=== PATIENT | male | born 1990 | race Caucasian/White ===

== ENCOUNTER → 2016-10-04 | Outpatient (CLI) | payer OTHER ==
--- NOTE | 2016-10-04 15:16 | US ---
EXAMINATION TYPE: US thyroid st tissue head/neck DATE OF EXAM: 10/04/2016 2:56 PM COMPARISON: NONE CLINICAL HISTORY: F45.8 Globus sensation. feels pressure left neck especially with swallowing GLAND SIZE: Right Lobe: 5.5 x 2.0 x 1.6 cm Overall Parenchyma: homogenous Left Lobe: 5.4 x 2.0 x 1.3 cm Overall Parenchyma: homogeneous Isthmus Thickness: 0.2 cm NODULES RIGHT: # of nodules measured on right: 1 1. 0.2 x 0.2 x 0.2 cm hypoechoic cystic nodule at the lower pole with well-defined margins. This nod ule is as tall as is wide and shows no intranodular vascularity. LEFT: # of nodules measured on left: 0 ISTHMUS: # of nodules measured in the isthmus: 0 TECHNOLOGIST IMPRESSION: Bilateral neck scanned, no abnormal lymphadenopathy noted, but upper neck n ode is noted bilaterally. Thyroid gland is prominent/upper limits of normal in size and fairly homogeneous in echotexture. No s uspicious nodules are identified. Technologist identified benign appearing subcentimeter lymph nodes with normal fatty hilum in the bilateral neck. IMPRESSION: Thyroid gland is prominent without worrisome greater than 1 cm solid or cystic nodule identified bila terally.
== END | disposition home or self-care (01) ==
LOC: RADUSWWP 14:00
PROVIDERS: ATTEND Family Medicine
DX: E04.1 Nontoxic single thyroid nodule (principal); F45.8 Other somatoform disorders
CPT/HCPCS: 76536

== ENCOUNTER 2016-12-27 07:48 | Day surgery (SDC) | payer OTHER ==
[2016-12-25 10:49] VITALS: BMI 37.3
[~2016-12-27 07:48] MED LIST: LACTATED RINGERS 1,000 ML IV SCH
[2016-12-27 08:26] VITALS: RESP 16; TEMP 97.6
[2016-12-27] MEDS ORDERED: PROPOFOL 10 MG/ML 20 ML VIAL IV ONE (08:55)
--- NOTE | 2016-12-27 09:03 | P.PCN ---
Date of Procedure: 12/27/16 Procedure(s) Performed: BRIEF HISTORY: Patient is a 26-year-old, pleasant, white male, scheduled for an upper endoscopy as a part of evaluation of globus sensation in his throat and throat irritation the last 3 months duration. He had seen Dr. Gan and had a endoscopy done which was normal. Trial of Prilosec 20 mg daily for 3 months and did not help. PROCEDURE PERFORMED: Esophagogastroduodenoscopy with biopsy. PREOPERATIVE DIAGNOSIS: Intermittent dysphagia, globus sensation and throat irritation. IV sedation per anesthesia. PROCEDURE: After informed consent was obtained, the patient was brought into the endoscopy unit. IV sedation was administered by Anesthesia under continuous monitoring. Initially the Olympus GIF-140 video endoscope was inserted into the mouth. Esophagus intubated without any difficulty. It was gradually advanced into the stomach and duodenum and carefully examined. The bulb and the second part of the duodenum appeared normal. The scope at this time was withdrawn to the stomach, adequately insufflated with air, and upon careful examination, mucosa of the antrum, body, cardia and the fundus appeared normal. The scope was then withdrawn into the esophagus. The GE junction was located at 39 cm from the incisors. The esophagus appeared normal. There were no erosions or ulcerations seen, biopsies were done from the midesophagus to rule out years of age esophagitis and the patient tolerated the procedure well. IMPRESSION: 1. Normal-appearing esophagus with no evidence of esophagitis, esophageal stricture or esophageal. 2. Normal-appearing stomach and duodenum. RECOMMENDATIONS: The findings of this examination were discussed with the patient as well as his family. He was advised to follow with the biopsy results. He was assured about the findings of this examination. Since he did not benefit from Prilosec advised him to discontinue the medication for now. He will be seen in office in 2-3 weeks
[2016-12-27 09:42] VITALS: BP 121/60; PULSE 71
== END 2016-12-27 09:42 | disposition home or self-care (01) ==
LOC: ORWHC2ENDO 07:48
PROVIDERS: ATTEND Internal Medicine Gastroenterology
DX: F45.8 Other somatoform disorders (principal); R07.0 Pain in throat; R13.10 Dysphagia, unspecified; K21.9 Gastro-esophageal reflux disease without esophagitis; Z88.0 Allergy status to penicillin; Z79.899 Other long term (current) drug therapy
CPT/HCPCS: 88305; 43239; J2704

== ENCOUNTER 2020-12-03 10:35 | Emergency (ER) | payer BC, OTHER ==
[2020-12-03 10:43] VITALS: BP 128/83; PULSE 95; RESP 20; TEMP 98.8
--- NOTE | 2020-12-03 11:39 | XR ---
EXAMINATION TYPE: XR chest 2V DATE OF EXAM: 12/03/2020 COMPARISON: NONE HISTORY: Worsening cough. Covid. TECHNIQUE: Frontal and lateral views of the chest are obtained. FINDINGS: There are multifocal areas of increased opacity in the left greater than right midlungs an d bilateral lower lungs. No pleural effusion or pneumothorax seen bilaterally. The cardiac silhouett e size is within normal limits. The osseous structures are intact. IMPRESSION: Bilateral multifocal mid to lower lung opacities consistent with known covid-19 infectio n.
--- NOTE | 2020-12-03 11:43 | ED ---
SOB HPI - General Chief Complaint: Shortness of Breath Stated Complaint: Covid+/sob/coughing up blood Time Seen by Provider: 12/03/20 10:45 Source: patient Mode of arrival: ambulatory Limitations: no limitations - History of Present Illness Initial Comments: Patient is a healthy 30-year-old male presenting to the emergency Department with complaints of increasing shortness of breath over the past 2 days. Patient states he tested positive for covid 4 days ago. His symptoms started about 3 days prior to that with some mild sinus congestion and pressure. Patient states he went to his doctor with the symptoms who started him on a Z-Michael and stated he should get tested just in case. Test came back positive. He states about 3 days ago he started having coughing sputum production, he did notice a little bit of blood in there yesterday and today so he came in for evaluation. He does admit to some mild shortness of breath. He denies history of asthma or COPD, he is a nonsmoker. He takes no medications, no other pertinent past medical history. He does admit to some mild nausea, mild vomiting mostly due to the intense coughing. He also has some mild diarrhea. He is tolerating awaiting fluids, decreased appetite. He has no further complaints. Upon arrival to the ER, his vital signs are stable. - Related Data Previous Rx's Medication Instructions Recorded Albuterol Inhaler [Ventolin Hfa 4 puff INHALATION RT-QID PRN #1 12/03/20 Inhaler] puff Dexamethasone [Decadron] 6 mg PO DAILY 5 Days #5 tablet 12/03/20 Allergies Allergy/AdvReac Type Severity Reaction Status Date / Time Penicillins Allergy Unknown Verified 12/03/20 11:26 Childhood Review of Systems ROS Statement: Those systems with pertinent positive or pertinent negative responses have been documented in the HPI. ROS Other: All systems not noted in ROS Statement are negative. Past Medical History Past Medical History: GERD/Reflux Additional Past Medical History / Comment(s): FEELS LIKE SOMETHING IS STUCK IN THROAT PER PT History of Any Multi-Drug Resistant Organisms: None Reported Past Surgical History: No Surgical Hx Reported Additional Past Anesthesia/Blood Transfusion Reaction / Comment(s): NO PRIOR ANESTHESIA HX Past Psychological History: No Psychological Hx Reported Smoking Status: Never smoker Past Alcohol Use History: None Reported Past Drug Use History: None Reported - Past Family History Mother Family Medical History: No Reported History General Exam - General Exam Comments Initial Comments: GENERAL: Patient is well-developed and well-nourished. Patient is nontoxic and in no acute distress. HEAD: Atraumatic, normocephalic. EYES: Pupils equal round and reactive to light, extraocular movements intact, sclera anicteric, conjunctiva are normal. Eyelids were unremarkable. ENT: TMs normal, nares patent, oropharynx clear without exudates. Moist mucous membranes. NECK: Normal range of motion, supple without lymphadenopathy or JVD. LUNGS: Unlabored respirations. Breath sounds clear to auscultation bilaterally and equal. No wheezes rales or rhonchi. HEART: Regular rate and rhythm without murmurs, rubs or gallops. ABDOMEN: Soft, nontender, normoactive bowel sounds. No guarding, no rebound. No masses appreciated. : Deferred MUSCULOSKELETAL: Normal extremities with adequate strength and normal range of motion, no pitting or edema. No clubbing or cyanosis. NEUROLOGICAL: Patient is alert and oriented x 3. Motor and sensory are also intact. Cranial nerves II through XII grossly intact. Symmetrical smile. Normal speech, normal gait. PSYCH: Normal mood, normal affect. SKIN: Warm, Dry, normal turgor, no rashes or lesions noted. Limitations: no limitations Course Vital Signs 12/03/20 12/03/20 10:40 12:14 Temperature 98.8 F Pulse Rate 95 Respiratory 20 Rate Blood Pressure 128/83 O2 Sat by Pulse 96 95 Oximetry Medical Decision Making - Medical Decision Making Patient is a 30-year-old male here for increasing shortness of breath and cough over the past few days. Tested positive for Covid 4 days ago, symptoms started 7 days ago. He did finish a Z-Michael. His vital signs are normal, his exam is unremarkable. Patient does not meet qualifications for BAM infusion. Chest x- ray shows bilateral multifocal mid to lower lung opacities consistent with Covid infection. Reasons vital signs remained stable, 95-96% on room air. Patient will be started on steroids, first dose given here in the ER. I'll also give him an albuterol inhaler prescription. Also recommended vitamins, zinc. Patient is stable for discharge. Patient is in agreement with this plan of care. Return parameters were discussed with the patient and they verbalized understanding. Case discussed with Dr. Coreas. Disposition Clinical Impression: Pneumonia due to COVID-19 virus Disposition: HOME SELF-CARE Condition: Stable Instructions (If sedation given, give patient instructions): Coronavirus Disease 2019 (COVID-19) Additional Instructions: Please return to the Emergency Department if symptoms worsen or any other concerns. Take steroids as prescribed. Use inhaler as needed for shortness of breath, cough. Recommend vitamins such as zinc, vitamin C and vitamin D. Follow-up with your primary care physician. Prescriptions: Dexamethasone [Decadron] 6 mg PO DAILY 5 Days #5 tablet Albuterol Inhaler [Ventolin Hfa Inhaler] 4 puff INHALATION RT-QID PRN #1 puff PRN Reason: Shortness Of Breath Is patient prescribed a controlled substance at d/c from ED?: No Referrals: Chris Aldana DO [Primary Care Provider] - 1-2 days Time of Disposition: 12:04
[2020-12-03] MEDS ORDERED: dexAMETHasone 2 MG TAB PO STA (12:02)
== END 2020-12-03 12:14 | disposition home or self-care (01) ==
LOC: EC 10:35
DX: U07.1 COVID-19 (principal); J12.82 Pneumonia due to coronavirus disease 2019; K21.9 Gastro-esophageal reflux disease without esophagitis; Z88.0 Allergy status to penicillin
CPT/HCPCS: 71046; 99285; J8540

== ENCOUNTER 2022-05-06 10:50 | Emergency (ER) | payer BC ==
--- NOTE | 2022-05-06 12:52 | CT ---
EXAMINATION TYPE: CT brain wo con DATE OF EXAM: 05/06/2022 COMPARISON: None INDICATION: head injury DLP: 1068.4 mGycm, Automated exposure control for dose reduction was used. CONTRAST: None CT of the brain is performed utilizing 3 mm thick sections through the posterior fossa and 3 mm thick sections through the remaining calvarium. Study is performed within 24 hours of arrival to the hosp [facility]. No abnormal hyperdensity is present to suggest an acute intracranial hemorrhage. No mass lesion is evident. No acute infarcts are evident. Ventricles and sulci are appropriate for the patient age. Paranasal sinuses and mastoid air cells within the [id number] are clear. IMPRESSIONS: 1. No acute intracranial process. Follow-up MRI can be performed as clinically indicated.
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
[2022-05-06 13:44] VITALS: BP 125/69; PULSE 76; RESP 17; TEMP 98.5
== END 2022-05-06 13:43 | disposition home or self-care (01) ==
LOC: EC 10:50
DX: S00.93XA Contusion of unspecified part of head, initial encounter (principal); Z72.0 Tobacco use; Z88.0 Allergy status to penicillin; W18.40XA Slipping, tripping and stumbling without falling, unspecified, initial encounter
CPT/HCPCS: 70450; 99284